=== PATIENT | female | born 1965 | race Two or more races ===

== ENCOUNTER → 2017-05-04 | Outpatient (CLI) | payer MEDICARE, OTHER ==
--- NOTE | 2017-05-04 11:29 | EST ---
EXERCISE STRESS DATE OF SERVICE: 05/04/2017 AGE: 51 SEX: Female HT: 5'4" WT: 107 pounds PROTOCOL: Cardiolite Treadmill STAGE: III DURATION OF EXERCISE: 11 minutes and 21 seconds. HEART RATE REST: 60 BLOOD PRESSURE REST: 117/76 MAXIMUM HEART RATE ACHIEVED: 148 MAXIMUM BLOOD PRESSURE: 173/98 85% MPHR: 143 100% MPHR: 168 METS: 12.1 INDICATIONS: Chest pain. CLINICAL INFORMATION: Baseline EKG revealed a sinus mechanism without significant ST-T changes. There was borderline voltage criteria for LVH. Patient walked on a standard Liam protocol for 11 minute 21 seconds achieved a maximum heart rate of 148 beats per minute, which is more than 85% of predicted maximal. She developed fatigue and shortness of breath, but did not have any angina or arrhythmia. Resting blood pressure was 117/76. Peak blood pressure was 173/98. There was a lot of baseline artifact. However, there is no clear- cut evidence to suggest any stress-induced ischemia. Upsloping ST-segment changes were noted. By EKG, there is a negative stress test with good exercise capacity. The nuclear scan results, which are more pertinent, will be reported by the radiologist. MMODL / IJN: [id number] /
--- NOTE | 2017-05-04 12:53 | NM ---
EXAMINATION TYPE: NM stress cardiolite complete DATE OF EXAM: 05/04/2017 COMPARISON: NONE HISTORY: Chest pain TECHNIQUE: After the intravenous administration of 10.02 mCi Tc 99m Sestamibi - Rest images obtained 50 minutes post injection. The patient exercised using a ELIZABETH protocol and 1 minute prior to peak exercise was injected with 27.1 mCi Tc 99m Sestamibi - Stress images obtained 15 minutes post inject ion. FINDINGS: Targeted heart rate was achieved during performance of the study. Review of stress and rest SPECT carmina ges demonstrates no distinct perfusion abnormality. Gated analysis shows normal wall motion with an estimated left ventricular ejection fraction of 58 %. IMPRESSION: No scintigraphic evidence for reversible ischemia
== END | disposition home or self-care (01) ==
LOC: RADNMMAIN 07:26
PROVIDERS: ATTEND Family Medicine
DX: R07.89 Other chest pain (principal)
CPT/HCPCS: 93017; 78452; A9500

== ENCOUNTER → 2017-05-06 | Outpatient (CLI) | payer MEDICARE ==
--- NOTE | 2017-05-06 19:35 | MR ---
EXAMINATION TYPE: MR cervical spine wo/w con DATE OF EXAM: 05/06/2017 7:02 PM COMPARISON: NONE HISTORY: Neck pain with Limited ROM,Gadavist 5.0 CONTRAST: The patient was injected with 5.0 mL intravenous Gadavist gadolinium contrast. Multiplanar MultiSpin echo imaging of the cervical spine was performed. C2-C3: No evidence for degenerative disc disease. No disc bulge/herniation or protrusion. No Canal stenosis. Foramina are patent bilaterally. C3-C4: No evidence for degenerative disc disease. No disc bulge/herniation or protrusion. No Canal stenosis. Foramina are patent bilaterally. C4-C5: Mild disc desiccation. Mild posterior disc bulge with mild effacement ventral thecal sac. No e vidence for cord contact, herniation or central stenosis. Mild narrowing left neural foramen secondar y to uncovertebral degenerative change. C5-C6: Post operative changes of anterior cervical discectomy and fusion. Alignment is anatomic. No e vidence for recurrent or residual herniation. No central stenosis. No pathologic enhancement. C6-C7:Mild disc desiccation. Mild posterior disc bulge with mild effacement ventral thecal sac. No ev idence for cord contact, herniation or central stenosis. Mild narrowing left neural foramen secondary to uncovertebral degenerative change. C7-T1: No evidence for degenerative disc disease. No disc bulge/herniation or protrusion. No Canal stenosis. Foramina are patent bilaterally. No cervical spine fracture. There is normal alignment. Cervical spinal cord is of normal signal. C raniovertebral junction relationships are within normal limits. No pathologic enhancement. Poorly ch aracterized tubular structure at the base of the tongue CT of the neck is recommended. IMPRESSION: 1. Postoperative changes of ACDF at C5-6 without evidence for recurrent or residual disease. 2. Degenerative disc disease and disc bulging as discussed above. #3 tubular structure at the base of the tongue requires further evaluation with contrast-enhanced CT of the neck.
== END | disposition home or self-care (01) ==
LOC: RADMRIMAIN 17:57
PROVIDERS: ATTEND Family Medicine
DX: M50.221 Other cervical disc displacement at C4-C5 level (principal); M50.30 Other cervical disc degeneration, unspecified cervical region; M43.6 Torticollis; Z98.890 Other specified postprocedural states
CPT/HCPCS: 72156; A9581

== ENCOUNTER → 2017-07-26 | Outpatient (CLI) | payer MEDICARE, OTHER ==
--- NOTE | 2017-07-27 08:32 | CT ---
EXAMINATION TYPE: CT soft tissue neck w con DATE OF EXAM: 07/26/2017 HISTORY: Mass to base of tongue found on MRI. COMPARISON: 05/06/2017 CT DLP: 408 mGycm. Automated Exposure Control for Dose Reduction was Utilized. TECHNIQUE: CT scan of the neck is performed with IV Contrast, patient injected with 100 mL of Isovue M300, axial images are obtained, coronal and sagittal reformatted images are reviewed. FINDINGS: Airway: Deep to the hyoid there is an elongated tubular structure extending over the thyroid cartilag e again measuring approximately 2.2 x 1.1 cm. Attenuation is slightly higher than simple fluid. This is smoothly marginated and does not create destruction of surrounding structures. There is no signifi cant mass effect upon the vallecula. No additional masses are identified. Parotid/submandibular glands: No gross abnormality seen. Carotid/Vascular Structures: There is a normal 3 vessel branch pattern of the aortic arch. The caroti d and vertebral arteries appear patent. Minimal nonhemodynamically significant calcific plaque is see n within the left cavernous portion of the internal carotid artery. Vertebral arteries are codominant . Osseous Structures: Anterior cervical fusion device is incidentally noted in addition to mild multile tiffanie degenerative changes of the cervical spine. Paranasal sinuses and mastoid air cells appear well a erated. Other: No adenopathy is seen within the neck. Very mild centrilobular emphysematous changes are seen at the lung apices. IMPRESSION: Near fluid attenuated elongated lesion posterior to the hyoid midline within the neck. Co mpilation of findings favor a benign slightly complicated thyroglossal duct cyst containing a small a mount of protein or hemorrhage. Superimposed infection is unlikely as there are no surrounding inflam matory changes. Differential does include epidermoid cyst, atypical laryngocele and ranula. If this i s a new finding or interval growth is suspected confirmation with enhanced MRI could be performed to ensure no postcontrast enhancement as precontrast images were not obtained on today's examination.
== END ==
LOC: RADCTMAIN 17:33
PROVIDERS: ATTEND Family Medicine
DX: M89.9 Disorder of bone, unspecified (principal); Q89.2 Congenital malformations of other endocrine glands
CPT/HCPCS: 70491; Q9967

== ENCOUNTER → 2017-08-04 | Outpatient (CLI) | payer MEDICARE, OTHER ==
--- NOTE | 2017-08-05 14:16 | MM ---
Reason for exam: screening (asymptomatic). Last mammogram was performed 2 years and 8 months ago. History: Patient is postmenopausal. Physical Findings: A clinical breast exam by your physician is recommended on an annual basis and results should be correlated with mammographic findings. MG Screening Mammo w CAD Bilateral CC, MLO, and XCCL view(s) were taken. Prior study comparison: December 04, 2014, mammogram, performed at [facility]. November 30, 2012, mammogram, performed at [facility]. August 15, 2010, mammogram, performed at [facility]. April 02, 2009, mammogram, performed at [facility]. The breast tissue is extremely dense which could obscure a lesion on mammography. Focal asymmetry right upper MLO view and left lower MLO view. This finding is changed when compared with previous exams. ASSESSMENT: Incomplete: need additional imaging evaluation, BI-RAD 0 RECOMMENDATION: Special view mammogram of both breasts. If lesion persists on supplemental views, image directed ultrasound is recommended. [facility] will attempt to contact patient to return for supplemental views and ultrasound if indicated.
== END | disposition home or self-care (01) ==
LOC: RADMAMWWP 13:22
PROVIDERS: ATTEND Family Medicine
DX: Z12.31 Encounter for screening mammogram for malignant neoplasm of breast (principal)
CPT/HCPCS: 77067

== ENCOUNTER → 2017-08-31 | Outpatient (CLI) | payer MEDICARE, OTHER ==
--- NOTE | 2017-09-01 07:40 | MM ---
Reason for exam: additional evaluation requested from abnormal screening. Last mammogram was performed 1 month ago. History: Patient is postmenopausal. Physical Findings: Nurse did not find any significant physical abnormalities on exam. MG Work Up Mamm w CAD BILAT Bilateral spot compression MLO and ML view(s) were taken. Spot compression XCCL view(s) were taken of the left breast. Prior study comparison: August 04, 2017, bilateral MG screening mammo w CAD. December 04, 2014, mammogram, performed at [facility]. The breast tissue is heterogeneously dense. This may lower the sensitivity of mammography. No distinct lesion persists on additional views in the right breast. Asymmetry does not go completely away on left breast. These results were verbally communicated with the patient and result sheet given to the patient on 08/31/17. ASSESSMENT: Incomplete: need additional imaging evaluation, BI-RAD 0 RECOMMENDATION: Ultrasound of the left breast.
--- NOTE | 2017-09-01 07:41 | USB ---
Reason for exam: additional evaluation requested from abnormal screening. History: Patient is postmenopausal. US Breast Workup Limited LT Left limited breast ultrasound including focal area of concern, retroareolar and axilla demonstrates no cystic or solid lesion seen. These results were verbally communicated with the patient and result sheet given to the patient on 08/31/17. ASSESSMENT: Negative, BI-RAD 1 RECOMMENDATION: Return to routine screening mammogram schedule for both breasts.
== END | disposition home or self-care (01) ==
LOC: RADMAMWWP 14:57
PROVIDERS: ATTEND Family Medicine
DX: R92.8 Other abnormal and inconclusive findings on diagnostic imaging of breast (principal)
CPT/HCPCS: 77066

== ENCOUNTER → 2017-10-25 | Outpatient (CLI) | payer MEDICARE, OTHER ==
--- NOTE | 2017-10-26 05:36 | MR ---
EXAMINATION TYPE: MR neck wo/w con DATE OF EXAM: 10/25/2017 COMPARISON: 05/06/[address] scan 07/26/2017 HISTORY: Neck mass CONTRAST: Standard multiplanar, multisequence MRI departmental protocol utilizing 10 mL intravenous gadolinium contrast. FINDINGS: Parotid glands and submandibular salivary glands are symmetric. Subglottic trachea appears normal. The epiglottis appears normal. Prevertebral soft tissues are not enlarged. There is an elongated intermediate signal mass at the base of the tongue anterior to the epiglottis. This is bilobed. This measures 17 x 10 mm in diameter and shows no enhancement. On the T2 images this has high signal consistent with fluid. There is no cervical adenopathy. I see no bony destructive pr ocess. IMPRESSION: Nonenhancing elongated mass at the base of the tongue has benign features and could be thyroglossal duct remnant or cyst. This is not changed in size compared to old MR scan of 05/06/2017. Features appe ar benign.
== END | disposition home or self-care (01) ==
LOC: RADMRIMAIN 17:31
PROVIDERS: ATTEND Otolaryngology
DX: R22.1 Localized swelling, mass and lump, neck (principal); Z88.5 Allergy status to narcotic agent; Z88.2 Allergy status to sulfonamides
CPT/HCPCS: 70543; A9581

== ENCOUNTER → 2019-02-14 | Outpatient (CLI) | payer MEDICARE ==
--- NOTE | 2019-02-16 13:25 | MM ---
Reason for exam: screening (asymptomatic). Last mammogram was performed 1 year and 5 months ago. History: Patient is postmenopausal. Took hormonal contraceptives for 20 years. Physical Findings: A clinical breast exam by your physician is recommended on an annual basis and results should be correlated with mammographic findings. MG 3D Screening Mammo W/Cad Bilateral CC and MLO view(s) were taken. Prior study comparison: August 31, 2017, bilateral MG work up mamm w CAD BILAT. August 04, 2017, bilateral MG screening mammo w CAD. The breast tissue is extremely dense which could obscure a lesion on mammography. Benign appearing calcifications in the left breast. No suspicious abnormality. No significant changes when compared with prior studies. ASSESSMENT: Benign, BI-RAD 2 RECOMMENDATION: Routine screening mammogram of both breasts in 1 year.
== END | disposition home or self-care (01) ==
LOC: RADMAMWWP 08:35
PROVIDERS: ATTEND Family Medicine
DX: Z12.31 Encounter for screening mammogram for malignant neoplasm of breast (principal)
CPT/HCPCS: 77063; 77067

== ENCOUNTER → 2019-10-09 | Outpatient (CLI) | payer MEDICARE ==
--- NOTE | 2019-10-09 09:08 | MR ---
MRI CERVICAL SPINE: CLINICAL HISTORY: Spondylosis with radiculopathy per order. Headache with neck pain causing pain or w eakness into left arm and fingers per patient. TECHNIQUE: Multiplanar, multisequence imaging of the cervical spine is performed without IV contrast. COMPARISON: None. FINDINGS: Sagittal images of the cervical spine show the craniocervical junction to appear within nor mal limits. The cervical and upper thoracic spinal cord is normal in course, caliber, and signal. Th ere is slight grade 1 retrolisthesis C4 on C5 and C6 on C7. There is artifact from anterior fusion p late and disc material at C5-C6 level. The vertebral body and intravertebral disk heights are of sati sfactory above and below surgical levels. The bone marrow signal intensity is within normal limits. Axial images show C2-C3 and C3-C4 levels to appear within normal limits. Axial images at the C4-C5 level show focal left paracentral/foraminal disc protrusion effacing amanda lateral thecal sac and causing asymmetric moderate left-sided neural foraminal narrowing. Axial images at the C5-C6 level show artifact from disc material. There is foraminal spurring bilater ally causing moderate left and mild right-sided neural foraminal narrowing. Axial images at the C6-C7 level shows spondylolisthesis with broad-based posterior disc protrusion ef facing anterior thecal sac and causing moderate to severe left-sided neural foraminal narrowing. Ther e is more mild right-sided neural foraminal narrowing noted. Axial images at C7-T1 level appear within normal limits. Incidental 1.0 cm thin-walled cyst or prominence of the exiting nerve sheath at the left T1-T2 level, latter favored. IMPRESSION: Postsurgical change C5-C6 level. Multilevel degenerative changes noted as detailed above. Increased multilevel left-sided neural foraminal narrowing noted due to marginal and foraminal spurr ing.
== END | disposition home or self-care (01) ==
LOC: RADMRIMAIN 08:23
DX: M99.71 Connective tissue and disc stenosis of intervertebral foramina of cervical region (principal); M47.22 Other spondylosis with radiculopathy, cervical region; Z98.890 Other specified postprocedural states
CPT/HCPCS: 72141

== ENCOUNTER → 2019-12-29 | Outpatient (CLI) | payer MEDICARE, OTHER ==
--- NOTE | 2019-12-29 11:28 | XR ---
EXAMINATION TYPE: XR cervical spine limited DATE OF EXAM: 12/29/2019 COMPARISON: NONE HISTORY: Postop TECHNIQUE: 3 views submitted FINDINGS: Postsurgical changes at levels C4-C7. Prevertebral soft tissue structures within normal salter its. Odontoid intact. Multilevel facet arthropathy. At one of the metallic screws appears along the d isc space and inferior endplate of C6 on the lateral view. Correlate clinically. IMPRESSION: 1. Postoperative changes in near-anatomic alignment. 2. Multilevel facet arthropathy.
== END | disposition home or self-care (01) ==
LOC: RADXRMAIN 11:05
DX: M47.812 Spondylosis without myelopathy or radiculopathy, cervical region (principal); M43.22 Fusion of spine, cervical region; Z79.899 Other long term (current) drug therapy
CPT/HCPCS: 72040

== ENCOUNTER → 2020-05-07 | Outpatient (CLI) | payer MEDICARE, OTHER ==
--- NOTE | 2020-05-07 09:38 | XR ---
EXAMINATION TYPE: XR cervical spine limited DATE OF EXAM: 05/07/2020 COMPARISON: 12/29/2019 HISTORY: Postop TECHNIQUE: 3 views obtained FINDINGS: Postsurgical changes at levels C4-C7. Prevertebral soft tissue structures within normal limits. Odont oid intact. Multilevel facet arthropathy. At one of the metallic screws appears along the disc space and inferior endplate of C6 on the lateral view. Correlate clinically. IMPRESSION: 1. Postoperative changes in near-anatomic alignment. 2. Multilevel facet arthropathy.
== END | disposition home or self-care (01) ==
LOC: RADXRMAIN 09:17
PROVIDERS: ATTEND Physician Assistant Surgical
DX: Z48.89 Encounter for other specified surgical aftercare (principal); M47.812 Spondylosis without myelopathy or radiculopathy, cervical region
CPT/HCPCS: 72040

== ENCOUNTER → 2020-08-06 | Outpatient (CLI) | payer MEDICARE, OTHER ==
--- NOTE | 2020-08-06 12:56 | XR ---
Cervical spine Limited HISTORY: G 95.9 3 views of the cervical spine correlated prior exam 05/07/2020 Exam is stable. Patient is status post anterior cervical fusion and discectomy at C4-C7. Alignment is near-anatomic and stable. C7-T1 not included on the exam. Cervical vertebral bodies show stable heig ht and mineralization. Facet arthropathy changes are present as on prior exam. impression: Surgical follow-up. Postop changes
== END | disposition home or self-care (01) ==
LOC: RADXRMAIN 11:15
PROVIDERS: ATTEND Physician Assistant Surgical
DX: G95.9 Disease of spinal cord, unspecified (principal)
CPT/HCPCS: 72040

== ENCOUNTER → 2020-10-03 | Outpatient (CLI) | payer MEDICARE, OTHER ==
--- NOTE | 2020-10-03 14:14 | CT ---
EXAMINATION TYPE: CT cervical spine wo con DATE OF EXAM: 10/03/2020 COMPARISON: None HISTORY: neck pain with radiation to arms, arms numbness and weakness, history of prior sx CT DLP: 276.[address] of the cervical spine was performed with bone and soft tissue window settings submitted . Coronal and sagittal reconstruction is obtained. Postoperative changes of the anterior cervical discectomy and fusion noted extending from C4 through C7. Anterior fixation plate and intervertebral body spacers are in place. Alignment is near-anatomic. The C2-3 and C3-4 as well as the C7-T1 intervertebral spaces are within normal limits. No evidence f or disc herniation or central stenosis. No recurrent disease is evident. IMPRESSION: Appropriate postoperative appearance of the cervical spine.
== END | disposition home or self-care (01) ==
LOC: RADCTMAIN 13:30
DX: G95.9 Disease of spinal cord, unspecified (principal)
CPT/HCPCS: 72125

== ENCOUNTER → 2020-12-02 | Outpatient (CLI) | payer MEDICARE, OTHER ==
[2020-12-02 11:08] VITALS: BP 158/96; PULSE 60; RESP 18
--- NOTE | 2020-12-02 11:12 | P.PAINCN ---
History of Present Illness - Reason for Consult Consult date: 12/02/20 - History of Present Illness This is 55 years old female with a chronic history of severe neck pain,with radiations to the shoulder area and in the upper extremity, patient reported that she had cervical fusion surgery with revision done more than a year ago, and she reports that she continued to have severe pain, the pain is constant interfere with her quality of life and increased with any neck movement, patient tried physical therapy without any significant improvement she tried massage therapy, tried. He without any relief, he feels some weakness in her upper extremity, also patient complaining of low back pain patient had lumbar fusion surgery, that most of her pain is in the cervical area, and was referred by Dr. Sanabria for evaluation and C7-T1 facet ejections Past Medical History Past Medical History: Memory Impairment Additional Past Medical History / Comment(s): Hx head injury 9 yrs ago. Vertigo. History of Any Multi-Drug Resistant Organisms: None Reported Past Surgical History: Back Surgery Additional Past Surgical History / Comment(s): Back surgery X2, neck surgery. Past Anesthesia/Blood Transfusion Reactions: No Reported Reaction Additional Past Anesthesia/Blood Transfusion Reaction / Comm: Slow to wake up with last surgery. Vertigo. Past Psychological History: Anxiety, Depression Smoking Status: Current every day smoker Past Alcohol Use History: Rare Additional Past Alcohol Use History / Comment(s): Smokes 1/2 ppd on and off for 30 yrs. Past Drug Use History: Marijuana Additional Drug Use History / Comment(s): Marijuana edibles daily PRN. - Past Family History Brother(s) Family Medical History: Cancer Additional Family Medical History / Comment(s): Mouth cancer. Lung cancer X2 brothers. Daughter(s) Family Medical History: Cancer Additional Family Medical History / Comment(s): Cervical cancer. Medications and Allergies Home Medications Medication Instructions Recorded Confirmed Type Cholecalciferol [Vitamin D3 (25 25 mcg PO DAILY 11/28/20 12/02/20 History Mcg = 1000 Iu)] PARoxetine HCL [Paxil] 30 mg PO DAILY 11/28/20 12/02/20 History Allergies Allergy/AdvReac Type Severity Reaction Status Date / Time codeine Allergy Nausea & Verified 12/02/20 10:26 Vomiting Physical Exam Physical Examinations : -Constitutiona : Cooperative , not in acute distress . -HEENT : nech : supple , no Lymphadenopathy , normal thyroid size . : eyes : no ptosis , no icterus, no photophobia . - neurologic : Cranial nerve II to XII intact , no focal neurological deffecit . -psychatric : alert , oriented X 3 , appropriate affect , intact judgment and insight . -Lymphatic : no Lymphadenopathy . - musculoskeltal : Cervical Spine motor stregnth in the deltoid and biceps, normal right side , normal Left side motor stregnth biceps and the wrist extensors normal right side ,normal left side . motor stregnth in the triceps muscle . normal Right side , normal Left side deep tendon reflexes normal at the biceps , normal at Brachioradialis , normal at triceps. cervical facet loading test: Positive Bilaterally Spurling test= positive Right , positive left. Neck distraction test= positive Right , positive left. Wendi sign= positive right, positive left . limited neck movement. Limited neck rotation Lumber spine moter stegnth lower extremities ,thigh and legs 5/5 Right side , 5/5 Left side Results Comments: MRI of the cervical spine= post surgical changes at C5 6, cervical foraminal stenosis. Assessment and Plan Plan: Assessment and plan=1-cervical spondylosis with cervical facet arthropathy. 2-cervical foraminal stenosis. 3-previous fusion at C5-6 Shunt could benefit from diagnostic medial branch block cervical area C6, C7, T1 bilaterally x2 possible RFA Time with Patient: Greater than 30 PQRS Measure Charge Sheet Measure #130: Documentation of Current Meds in Medical Chart: Patient's medications documented in chart Measure #226: Tobacco Use: Screen & Cessation Intervention: Pt screened for tobacco use AND intervention given Measure #111: Pneumonia Vaccination: Pneumococcal vaccine NOT administered or previously given Measure #47: Advance Care Plan: Advance care planning discussed & documented, pt chose/unable to give Measure #412: Opioid Treatment Agreement: No documentation of signed opioid treatment agreement Measure #408: Opioid Therapy Follow-up Evaluation: Patient had NO f/u eval minimum every 3 months during opioid therapy Measure #317: Preventitive Care & Scrn High Bld Press & F/U: Pre-hypertensive or hypertensive BP documented, pt will f/u with PCP Measure #128: Body Mass Index (BMI) Screening & Follow-up: BMI documented within normal parameters Measure #131: Pain Assessment & Follow-up: Pain positive & plan documented, Follow-up scheduled Measure #431: Unhealthy Alcohol Use Preventative Care & Scrn: Patient not identified as an unhealthy alcohol user PQRS Narrative: Pain Intensity [Neck] 10 Scale Used Numeric (1 - 10) Hx Alcohol Use (MH) Yes Home Medications: Ambulatory Orders Cholecalciferol [Vitamin D3 (25 Mcg = 1000 Iu)] 25 mcg PO DAILY 11/28/20 PARoxetine HCL [Paxil] 30 mg PO DAILY 11/28/20
== END ==
LOC: PNWHC3 10:19
PROVIDERS: ATTEND Specialist
DX: M47.812 Spondylosis without myelopathy or radiculopathy, cervical region (principal); M48.02 Spinal stenosis, cervical region; F41.9 Anxiety disorder, unspecified; F32.9 Major depressive disorder, single episode, unspecified; F17.210 Nicotine dependence, cigarettes, uncomplicated; Z79.899 Other long term (current) drug therapy; Z98.1 Arthrodesis status; Z88.5 Allergy status to narcotic agent
CPT/HCPCS: G0463 ×2; 99202; 99211

== ENCOUNTER 2021-01-03 10:34 | Day surgery (SDC) | payer MEDICARE, OTHER ==
[2021-01-01 15:38] VITALS: BMI 20.5
[2021-01-03 11:23] VITALS: TEMP 97.8
[2021-01-03] MEDS ORDERED: LACTATED RINGERS 1,000 ML IV ONE (11:23)
[2021-01-03] MEDS ORDERED: LACTATED RINGERS 1,000 ML IV SCH (11:33)
[2021-01-03] MEDS ORDERED: TRIAMCINOLONE ACETONIDE 40 MG/ML 1 ML VIAL ONE (11:34)
[2021-01-03] MEDS ORDERED: ROPIVACAINE 5MG/ML 20ML VIAL ONE (11:34)
[2021-01-03] MEDS ORDERED: fentaNYL (PF) 50 MCG/ML 2 ML AMP ONE (11:36)
[2021-01-03] MEDS ORDERED: MIDAZOLAM 2 MG/2 ML VIAL ONE (11:36)
[2021-01-03] MEDS ORDERED: ONDANSETRON 4 MG/2 ML VIAL ONE (11:36)
[2021-01-03] MEDS ORDERED: IV FLUID CONTINUATION 1,000 ML IV ONE (12:18)
--- NOTE | 2021-01-03 12:18 | P.PCN ---
Date of Procedure: 01/03/21 Procedure(s) Performed: PREOPERATIVE DIAGNOSIS: Cervical Spondylosis with Facet Arthropathy.without myelopathy POSTOPERATIVE DIAGNOSIS: Cervical Spondylosis Facet Arthropathy. Without myelopathy PROCEDURES: Diagnostic Bilateral C6 , C7 ,T1 medial branch blocks, with fluoroscopic guidance (fluoroscopy images available in radiology department ) ( to target the facet joint at Bilateral C6-C7 ,C7 T1 ) ANESTHESIA: Monitored anesthesia care per anesthesia department. EBL: Minimal PROCEDURE INDICATION: The patient with neck pain secondary to cervical arthropathy unresponsive to more conservative treatments. PROCEDURE DESCRIPTION / TECHNIQUE: The patient was seen and identified in the preoperative area. Risks, benefits, complications, and alternatives were discussed with the patient, the patient agreed to proceed with the procedure and signed the consent. IV was started. Vital signs remained stable throughout the procedure. Patient was taken to the OR and time out was completed. The patient was placed in the Lateral position on the procedure table. The cervical area was prepped and draped in the usual sterile fashion. Critical pause was taken. Vital signs were closely monitored during the procedure. Conscious sedation was used during the procedure to decrease patients anxiety. Using cross-table lateral fluoroscopy, the centroid of the trapezoid of right C6, C7 , T1 was identified, marked, and localized with 1% lidocaine 1 ml at each level for skin and Sub Q infiltrations . Subsequently, a 25 G 3 spinal needle was advanced guided by fluoroscopy to the centroid of the trapezoid of Right C6 , C7 ,T1 . Skidmore tip position was confirmed at the centroid of the trapezoids of Right C6, C7 , T1 with anteroposterior fluoroscopy. Subsequently, 1.5 ml of preservative-free Ropivacaine 0.5% mixed with Kenalog 20 mg and half ml of the mixture was injected after negative aspiration for blood and CSF. Skidmore was then removed intact the same procedure was repeated at the left C6 ,C7 ,T1 levels. COMPLICATIONS: No acute complications. COMMENTS: I tried to do the procedure in prone position ,but I was not able to visualize the C6 and C7, T1, then I a put patient on supine position I have the same problem, I could not visualize C6 or C7 or T1,for this reason I did procedure in lateral position for the right side by placing patient on left la teral decubitus ,and I did the left side by placing patient on the right lateral decubitus DISPOSITION / PLANS: The patient was placed in a supine position and transferred to the recovery area in a stable condition for observation and was discharged from the recovery room after meeting discharge criteria. Home discharge instructions given to the patient by the staff. The patient was reexamined prior to discharge. The patient will schedule a follow up in the clinic in 2-4 weeks.
[2021-01-03] MEDS ORDERED: DEXAMETHASONE SOD PHOSPHATE 4 MG/ML 1 ML VIAL IVP ONE (12:37)
[2021-01-03 12:50] VITALS: BP 118/70; PULSE 80; RESP 16
--- NOTE | 2021-01-03 14:00 | FL ---
Fluoroscopy HISTORY: Pain 19 seconds fluoroscopy time supplied to the referring clinician. 2 intraoperative C-arm images docum ent the procedure. See dictated report from anesthesia.
== END 2021-01-03 14:36 | disposition home or self-care (01) ==
LOC: ORPAIN 10:34
PROVIDERS: ATTEND Specialist
DX: M47.812 Spondylosis without myelopathy or radiculopathy, cervical region (principal); Z88.5 Allergy status to narcotic agent; Z79.899 Other long term (current) drug therapy
CPT/HCPCS: 64490; 64491; J2250; J1100; J3301; J2405; J3010; J2795; J1790

== ENCOUNTER 2021-01-07 15:45 | Emergency (ER) | payer MEDICARE, OTHER ==
[2021-01-07] MEDS ORDERED: SODIUM CHLORIDE 0.9% 1,000 ML IV ONE (18:15)
[2021-01-07] MEDS ORDERED: KETOROLAC 30 MG/ML 1 ML VIAL IVP STA (18:15)
[2021-01-07] MEDS ORDERED: PROCHLORPERAZINE INJ 10 MG/2 ML VIAL IVP STA (18:15)
[2021-01-07] MEDS ORDERED: diphenhydrAMINE 50 MG/ML 1 ML VIAL IVP STA (18:15)
[2021-01-07 19:04] LABS: Basophils % (A) 1 %; Eosinophils # (A) 0.1 k/uL (0-0.7); Eosinophils % (A) 1 %; HCT 49.1 % (34.0-46.0); HGB 16.6 gm/dL (11.4-16.0); Lymphocytes # (A) 2.1 k/uL (1.0-4.8); Lymphocytes % (A) 26 %; MCH 32.6 pg (25.0-35.0); MCHC 33.8 g/dL (31.0-37.0); MCV 96.6 fL (80.0-100.0); Mean Platelet Volume 7.4; Monocytes # (A) 0.5 k/uL (0-1.0); Monocytes % (A) 6 %; Neutrophils # (A) 5.2 k/uL (1.3-7.7); Neutrophils % (A) 65 %; Platelet Count 236 k/uL (150-450); RBC 5.09 m/uL (3.80-5.40); RDW 12.3 % (11.5-15.5); WBC 8.1 k/uL (3.8-10.6)
[2021-01-07 19:06] LABS: Appearance,Urine Clear (Clear); Bilirubin,Urine Negative (Negative); Blood,Urine Moderate (Negative); Color,Urine Yellow; Glucose,Urine (UA) Negative (Negative); Ketones,Urine 3+ (Negative); Leukocyte Esterase,Urine Large (Negative); Mucus,Urine Many /hpf; Nitrite,Urine Negative (Negative); PH, Urine 5.5 (5.0-8.0); Protein,Urine Trace (Negative); RBC,Urine 4 /hpf (0-5); Specific Gravity,Urine 1.025 (1.001-1.035); Squamous Epithelial Cell,Urine 1 /hpf (0-4); Urobilinogen,Urine <2.0 mg/dL (<2.0); WBC,Urine 3 /hpf (0-5)
[2021-01-07 19:16] LABS: ALT 15 U/L (4-34); AST 19 U/L (14-36); African American GFR (CKD) >90 (>60 ml/min/1.73 sqM); Albumin 5.2 g/dL (3.5-5.0); Alkaline Phosphatase 64 U/L (38-126); Anion Gap 13 mmol/L; Blood Urea Nitrogen 17 mg/dL (7-17); Calcium 10.3 mg/dL (8.4-10.2); Carbon Dioxide 23 mmol/L (22-30); Chloride 102 mmol/L (98-107); Glucose 107 mg/dL (74-99); Non-African American GFR(CKD) >90 (>60 ml/min/1.73 sqM); Sodium 138 mmol/L (137-145); Total Protein 8.6 g/dL (6.3-8.2)
[2021-01-07 19:30] VITALS: RESP 20
--- NOTE | 2021-01-07 19:38 | CT ---
EXAMINATION TYPE: CT cervical spine w con DATE OF EXAM: 01/07/2021 COMPARISON: 10/03/2020 HISTORY: Pain management injections 4 days ago. Increased neck pain. CT DLP: mGycm Automated exposure control for dose reduction was used. CONTRAST: Performed with IV Contrast, patient injected with mL of Isovue 300. Images obtained from the skull base to T4 vertebra without contrast. There is anterior previous fusion surgery from C4 to C7. Vertebra have normal alignment. Posterior el ements are intact there is no compression fracture. Prevertebral soft tissues are intact. There is no evidence of bony destructive process. There is no cervical paraspinal mass. IMPRESSION: Multilevel fusion surgery. No fracture. No complicating process seen. No change compared to old exam.
--- NOTE | 2021-01-07 19:47 | CT ---
EXAMINATION TYPE: CT soft tissue neck w con DATE OF EXAM: 01/07/2021 COMPARISON: 07/26/2017 HISTORY: Pain management injections 4 days ago. Increased neck pain. CT DLP: 187 mGycm Automated exposure control for dose reduction was used. CONTRAST: Performed with IV Contrast, patient injected with 100 mL of Isovue 300. Images obtained from the aortic arch to the top of the orbits with IV contrast. There is normal branching pattern of the great vessels on the aortic arch. Thyroid gland is symmetric . There is contrast opacification of the carotid arteries and jugular veins. There is contrast opacif ication of the vertebral arteries. Epiglottis is normal. Tonsils and adenoids appear normal. Visualized trachea appears normal. There is no evidence of pharyngeal mass. The submandibular salivary glands are symmetric. Parotid glands are symmetric. There is normal aerati on of the visualized paranasal sinuses. The tongue appears normal. Cervical vertebra have normal alignment. Posterior elements are intact. Th ere is anterior fusion surgery from C4 to C7. I see no focal bone destruction. There is no cervical p araspinal mass. IMPRESSION: Negative CT scan of the cervical soft tissues.
--- NOTE | 2021-01-07 20:24 | ED ---
Nausea/Vomiting/Diarrhea HPI - General Chief complaint: Nausea/Vomiting/Diarrhea Stated complaint: Neck pain Time Seen by Provider: 01/07/21 18:03 Source: patient Mode of arrival: ambulatory Limitations: no limitations - History of Present Illness Initial comments: 55 year-old female patient presents to the ED for reports of left sided neck pain, left side headache, and vomiting. States symptoms started after she received injections for pain in the left side of her neck on Wednesday. States that she has been vomiting since the procedure and has since developed worsening pain to the neck and to her head. She denies any fever or chills. States the pain in her neck is radiating into her left shoulder and down into her chest. Denies any abdominal pain or diarrhea. Denies any numbness or tingling to the extremities. Patient denies any recent rash, cough, shortness of breath, constipation, back pain, numbness, tingling, dizziness, weakness, hematuria, dysuria, urinary urgency, urinary frequency, or any other complaints. - Related Data Home Medications Medication Instructions Recorded Confirmed Cholecalciferol [Vitamin D3 (25 25 mcg PO DAILY 11/28/20 01/07/21 Mcg = 1000 Iu)] PARoxetine HCL [Paxil] 40 mg PO DAILY 11/28/20 01/07/21 Previous Rx's Medication Instructions Recorded Ondansetron [Zofran ODT] 4 mg PO Q8HR PRN #10 tab 01/07/21 Allergies Allergy/AdvReac Type Severity Reaction Status Date / Time codeine Allergy Nausea & Verified 01/01/21 15:29 Vomiting Review of Systems ROS Statement: Those systems with pertinent positive or pertinent negative responses have been documented in the HPI. ROS Other: All systems not noted in ROS Statement are negative. Past Medical History Past Medical History: Memory Impairment Additional Past Medical History / Comment(s): Hx head injury 9 yrs ago. Vertigo. History of Any Multi-Drug Resistant Organisms: None Reported Past Surgical History: Back Surgery Additional Past Surgical History / Comment(s): Back surgery X2, neck surgery. Past Anesthesia/Blood Transfusion Reactions: No Reported Reaction Additional Past Anesthesia/Blood Transfusion Reaction / Comment(s): Slow to wake up with last surgery. Vertigo. Past Psychological History: Anxiety, Depression Smoking Status: Current every day smoker - Past Family History Brother(s) Family Medical History: Cancer Additional Family Medical History / Comment(s): Mouth cancer. Lung cancer X2 brothers. Daughter(s) Family Medical History: Cancer Additional Family Medical History / Comment(s): Cervical cancer. General Exam Limitations: no limitations General appearance: alert, in no apparent distress, other (This is a well- developed, well-nourished adult female patient in no acute distress.) Eye exam: Present: normal appearance, PERRL, EOMI. Absent: scleral icterus, conjunctival injection, nystagmus, periorbital swelling ENT exam: Present: normal exam, normal oropharynx, mucous membranes moist Neck exam: Present: full ROM, other (There is ecchymosis noted to the left lateral neck). Absent: normal inspection, tenderness, meningismus, lymphadenopathy Respiratory exam: Present: normal lung sounds bilaterally. Absent: respiratory distress, wheezes, rales, rhonchi, stridor Cardiovascular Exam: Present: regular rate, normal rhythm, normal heart sounds. Absent: systolic murmur, diastolic murmur, rubs, gallop, clicks GI/Abdominal exam: Present: soft, normal bowel sounds. Absent: distended, tenderness, guarding, rebound, rigid Neurological exam: Present: alert, oriented X3, CN II-XII intact Psychiatric exam: Present: normal affect, normal mood Skin exam: Present: warm, dry, intact, normal color. Absent: rash Course Vital Signs 01/07/21 01/07/21 01/07/21 16:36 18:55 21:11 Temperature 98.3 F 98.1 F Pulse Rate 69 58 L 60 Respiratory 19 20 20 Rate Blood Pressure 139/68 152/83 130/82 O2 Sat by Pulse 98 99 98 Oximetry Medical Decision Making - Medical Decision Making 55 old female patient presents to the emergency department for evaluation of left-sided neck pain, left-sided headache, and nausea vomiting. Physical examination did reveal soft nontender abdomen. She is neurologically intact no focal deficits. Neurovascular status intact to the upper extremities. CT soft tissue neck and C-spine with contrast was obtained and was negative for any acute abnormalities. Labs reviewed and are unremarkable. She did have ketones in her urine consistent with dehydration. I did discuss findings results with her. Upon reevaluation she is feeling much better. She does feel comfortable being discharged home at this time. She be discharged with prescription for nausea medication. She is instructed to follow-up with Dr. Holder for further evaluation as soon as possible. Return parameters were discussed in detail. She verbalizes understanding and agrees with this plan. Case discussed with my attending Dr. Kaur. - Lab Data Result diagrams: 01/07/21 18:44 01/07/21 18:44 Lab Results 01/07/21 01/07/21 01/07/21 Range/Units 18:44 18:44 18:44 WBC 8.1 (3.8-10.6) k/uL RBC 5.09 (3.80-5.40) m/uL Hgb 16.6 H (11.4-16.0) gm/dL Hct 49.1 H (34.0-46.0) % MCV 96.6 (80.0-100.0) fL MCH 32.6 (25.0-35.0) pg MCHC 33.8 (31.0-37.0) g/dL RDW 12.3 (11.5-15.5) % Plt Count 236 (150-450) k/uL MPV 7.4 Neutrophils % 65 % Lymphocytes % 26 % Monocytes % 6 % Eosinophils % 1 % Basophils % 1 % Neutrophils # 5.2 (1.3-7.7) k/uL Lymphocytes # 2.1 (1.0-4.8) k/uL Monocytes # 0.5 (0-1.0) k/uL Eosinophils # 0.1 (0-0.7) k/uL Basophils # 0.0 (0-0.2) k/uL Sodium 138 (137-145) mmol/L Potassium 4.0 (3.5-5.1) mmol/L Chloride 102 (98-107) mmol/L Carbon Dioxide 23 (22-30) mmol/L Anion Gap 13 mmol/L BUN 17 (7-17) mg/dL Creatinine 0.52 (0.52-1.04) mg/dL Est GFR (CKD-EPI)AfAm >90 (>60 ml/min/1.73 sqM) Est GFR (CKD-EPI)NonAf >90 (>60 ml/min/1.73 sqM) Glucose 107 H (74-99) mg/dL Plasma Lactic Acid Bret 1.2 (0.7-2.0) mmol/L Calcium 10.3 H (8.4-10.2) mg/dL Total Bilirubin 1.0 (0.2-1.3) mg/dL AST 19 (14-36) U/L ALT 15 (4-34) U/L Alkaline Phosphatase 64 (38-126) U/L Troponin I (0.000-0.034) ng/mL Total Protein 8.6 H (6.3-8.2) g/dL Albumin 5.2 H (3.5-5.0) g/dL Urine Color Urine Appearance (Clear) Urine pH (5.0-8.0) Ur Specific [place] (1.001-1.035) Urine Protein (Negative) Urine Glucose (UA) (Negative) Urine Ketones (Negative) Urine Blood (Negative) Urine Nitrite (Negative) Urine Bilirubin (Negative) Urine Urobilinogen (<2.0) mg/dL Ur Leukocyte Esterase (Negative) Urine RBC (0-5) /hpf Urine WBC (0-5) /hpf Ur Squamous Epith Cells (0-4) /hpf Urine Mucus (None) /hpf Coronavirus (PCR) (Not Detectd) 01/07/21 01/07/21 01/07/21 Range/Units 18:44 18:45 19:30 WBC (3.8-10.6) k/uL RBC (3.80-5.40) m/uL Hgb (11.4-16.0) gm/dL Hct (34.0-46.0) % MCV (80.0-100.0) fL MCH (25.0-35.0) pg MCHC (31.0-37.0) g/dL RDW (11.5-15.5) % Plt Count (150-450) k/uL MPV Neutrophils % % Lymphocytes % % Monocytes % % Eosinophils % % Basophils % % Neutrophils # (1.3-7.7) k/uL Lymphocytes # (1.0-4.8) k/uL Monocytes # (0-1.0) k/uL Eosinophils # (0-0.7) k/uL Basophils # (0-0.2) k/uL Sodium (137-145) mmol/L Potassium (3.5-5.1) mmol/L Chloride (98-107) mmol/L Carbon Dioxide (22-30) mmol/L Anion Gap mmol/L BUN (7-17) mg/dL Creatinine (0.52-1.04) mg/dL Est GFR (CKD-EPI)AfAm (>60 ml/min/1.73 sqM) Est GFR (CKD-EPI)NonAf (>60 ml/min/1.73 sqM) Glucose (74-99) mg/dL Plasma Lactic Acid Bret (0.7-2.0) mmol/L Calcium (8.4-10.2) mg/dL Total Bilirubin (0.2-1.3) mg/dL AST (14-36) U/L ALT (4-34) U/L Alkaline Phosphatase (38-126) U/L Troponin I <0.012 (0.000-0.034) ng/mL Total Protein (6.3-8.2) g/dL Albumin (3.5-5.0) g/dL Urine Color Yellow Urine Appearance Clear (Clear) Urine pH 5.5 (5.0-8.0) Ur Specific [place] 1.025 (1.001-1.035) Urine Protein Trace H (Negative) Urine Glucose (UA) Negative (Negative) Urine Ketones 3+ H (Negative) Urine Blood Moderate H (Negative) Urine Nitrite Negative (Negative) Urine Bilirubin Negative (Negative) Urine Urobilinogen <2.0 (<2.0) mg/dL Ur Leukocyte Esterase Large H (Negative) Urine RBC 4 (0-5) /hpf Urine WBC 3 (0-5) /hpf Ur Squamous Epith Cells 1 (0-4) /hpf Urine Mucus Many H (None) /hpf Coronavirus (PCR) Not Detected (Not Detectd) - EKG Data -: EKG Interpreted by Wy EKG Comments: EKG obtained at 1835 shows sinus rhythm with a short CO interval. Ventricular rate is 60, CO interval 110, QRS duration 74, QT 424, QTC 424. No evidence of ST elevation or depression. - Radiology Data Radiology results: report reviewed, image reviewed CT soft tissue neck with contrast was obtained. Report is reviewed in its entirety. Impression by Dr. Oropeza shows negative computed tomography scan of the cervical soft tissues. CT cervical spine with contrast was obtained. Report was reviewed in its entirety. Impression by Dr. Oropeza shows multilevel fusion surgery. No fracture. No compared getting process seen. No change compared to old exam. Disposition Clinical Impression: Neck pain, Vomiting Disposition: HOME SELF-CARE Condition: Good Instructions (If sedation given, give patient instructions): Acute Nausea and Vomiting (ED), Neck Pain (ED) Additional Instructions: Take nausea medication as needed. 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 Return for any new, worsening, or concerning symptoms. Prescriptions: Ondansetron [Zofran ODT] 4 mg PO Q8HR PRN #10 tab PRN Reason: Nausea Is patient prescribed a controlled substance at d/c from ED?: No Referrals: Akil Curry [Primary Care Provider] - 1-2 days Russell Holdre MD [STAFF PHYSICIAN] - 1-2 days Time of Disposition: 20:31
[2021-01-07 21:12] VITALS: BP 130/82; PULSE 60; TEMP 98.1
== END 2021-01-07 21:12 | disposition home or self-care (01) ==
LOC: EC 15:45
DX: M54.2 Cervicalgia (principal); R11.10 Vomiting, unspecified; F41.9 Anxiety disorder, unspecified; F32.A Depression, unspecified; F17.200 Nicotine dependence, unspecified, uncomplicated
CPT/HCPCS: 96375 ×3; 96361 ×3; 96374 ×2; 99284 ×2; 36415; 93005; 80053; 83605; 84484; 85025; 81001; 87635; 72126; 70491; J1200; J0780; J1885; Q9967

== ENCOUNTER → 2023-06-03 | Outpatient (CLI) | payer MEDICARE, OTHER ==
[2023-06-03 10:40] VITALS: BP 128/72; PULSE 75; RESP 15; TEMP 98.5
--- NOTE | 2023-06-03 13:32 | P.PAINPG ---
PQRS Measure Charge Sheet Comment: A 57 yr old female with a history of severe and chronic LBP x 3 mo secondary to L4-L5 Discectomy/ Laminectomy w Revision (2012, 2019) presents today for LBP. Pain level is provoked at 9 /10 in intensity, constant, predominantly axial, localized in the lumbar spine, dull in character w occasional shooting towards the upper back. Pain is provoked by . Pain is alleviated with use of the [employer] pool weekly x 3 yrs, heat, ice, medications (Robaxin), THC products, repositioning and rest. Oswestry axial pain score at 35. Interventional pain procedures completed include BL MBB C6-7, C7-T1 x1 Patient is currently on Robaxin, Cannabis Patient denies any side effects of the medication(s), denies excessive drow siness or sleepiness, denies suicidal ideation and reports that the current pain medication is helping to control the pain and improve activities of daily living. Patient denies any motor or sensory deficits. Patient denies any fever or night sweats, denies any change in the bowel movements or urination. Physical Examination: -Constitutional: Cooperative. Not in acute distress . - Neurologic: Cranial nerve II to XII intact. No focal neurological deficits. - Psychatric: Alert & oriented x 3. Matching mood & appropriate affect. Judgment and insight intact. - Musculoskeletal: Cervical spine: Muscle bulk/ tone/ strength in the bilateral upper extremities normal Vertebral body tenderness to palpation over Spurling test positive Distraction test positive Facet loading test positive TTP Thoracic spine Muscle bulk / tone/ strength in the bilateral paraspinal muscles normal Vertebral body tender to palpation over Facet loading test positive TTP Lumbar spine: Motor bulk/ tone/ strength lower extremities , thigh and legs : 5/5 Deep tendon reflexes : Normal Knee Jerk. Normal Ankle Jerk . Vertebral body tenderness to palpation over L4 Ohara Test positive Lumbar Facet Loading Test positive Straight Leg Raise: positive at 30 degrees right side/ left side Gaenslen's Test positive Sacral spine : Severe tenderness over the Sacroiliac joint: right side / left side Range of motion: Flexion of the lumbar spine <60 degrees Range of motion: Extension of the lumbar spine <20 degrees Gaenslen's Test positive right side / left side Chan test: positive right side / left side Thigh Thrust Test positive right side / left side Sacral Thrust Test positive right side / left side Imaging: MRI non contrast of the lumbar spine from 01/29/23 reviewed Assessment and plan: Chronic LBP secondary to L4-L5 discectomy/ Laminectomy w Revision, C4-C7 ACDF Recommendation of AUGUSTINE TFESI L4-L5 #1. May need a series of injections for optimal pain relief. Risks, benefits of procedure discussed and pt verbalized understanding. Admits to anticoagulant use or medical history of diabetes. Protocol for discontinuation/ continuation of medications mary procedure discussed. All questions answered. I have spent less than 30 minutes on patient care today. Dr Espinoza was available by phone for the evaluation of this patient. The time was used to review the medical records including relevant urine studies and Prescription history (MAPs), review of the available imaging, evaluation and examination of the patient, coordination of care with the medical staff and if applicable referring physicians, as well as creation of the medical record PQRS Narrative: Hx Alcohol Use (MH) Yes Home Medications: Ambulatory Orders Cholecalciferol [Vitamin D3 (25 Mcg = 1000 Iu)] 25 mcg PO DAILY 11/28/20 PARoxetine HCL [Paxil] 40 mg PO DAILY 11/28/20 Ondansetron [Zofran ODT] 4 mg PO Q8HR PRN #10 tab 01/07/21 Controlled Substance Measures - Controlled Substance Measures Is patient prescribed a controlled substance at discharge?: No
== END ==
LOC: PNWHC3 09:16
PROVIDERS: ATTEND Specialist
DX: M54.50 Low back pain, unspecified (principal); G89.29 Other chronic pain; M43.22 Fusion of spine, cervical region; Z98.890 Other specified postprocedural states; Z88.5 Allergy status to narcotic agent
CPT/HCPCS: 99211

== ENCOUNTER 2023-06-15 08:20 | Day surgery (SDC) | payer MEDICARE, OTHER ==
[~2023-06-15 08:20] MED LIST: LACTATED RINGERS 1,000 ML IV SCH
[2023-06-15 09:34] VITALS: TEMP 97.1
[2023-06-15] MEDS ORDERED: methylPREDNISolone ACETATE 80 MG/ML 1 ML VIAL ONE (09:34)
[2023-06-15] MEDS ORDERED: IOPAMIDOL M200 10 ML VIAL ONE (09:34)
--- NOTE | 2023-06-15 09:43 | P.PCN ---
Date of Procedure: 06/15/23 Procedure(s) Performed: PREOPERATIVE DIAGNOSIS: 1-Lumbar radiculopathy . 2-lumbar degenerative disc disease. POSTOPERATIVE DIAGNOSIS: 1-lumbar radiculopathy. 2-lumbar degenerative disc disease. PROCEDURE 1. Transforaminal epidural steroid injection under fluoroscopic guidance at bilateral L4-5 level. (Fluoroscopy images stored on file in the radiology Department ) 2. Lumbar epidurogram . ANESTHESIA: Local with 1% lidocaine 3 ml. EBL: Minimal PROCEDURE INDICATION: The patient with low back pain and radiculopathy symptoms unresponsive to conservative treatment. PROCEDURE DESCRIPTION / TECHNIQUE: The patient was seen and identified in the preoperative area. Risks, benefits, complications, and alternatives were discussed with the patient. The patient agreed to proceed with the procedure and signed the consent, and vital signs were stable. Patient was taken to the OR and time out was completed. The patient was placed in the prone position on procedure table and a pillow was placed under the abdomen to reduce lumbar lordosis. The lumbosacral area was prepped and draped in the usual sterile fashion. Critical pause was taken. Vital signs were closely monitored during the procedure. Using oblique fluoroscopy, the chin of the `Yasmanyy dog at right L4-5 level was identified, and the skin and deeper tissues just below was localized with 1% lidocaine. Subsequently, a 22-gauge 3.5-inch spinal needle was advanced under a tunneled view fluoroscopic guidance just underneath the chin of the `Yasmanyy dog at the right L4-5 Under lateral fluoroscopy, the needle was then advanced to the posterior border of the interforaminal space. After negative aspiration of CSF and blood and with no paresthesias, 1 mL Isovue 200 contrast dye was injected excellent epidurogram and outlining of the nerve root Subsequently, 3 mL of block solution containing 40 mg Depo-Medrol and 2 mL of 0.9% normal saline PF was injected. Needle was removed and the same procedure was repeated at the left L4-5 level . At the end of the procedure, skin was cleansed, and bandages were applied. COMPLICATIONS:none DISPOSITION / PLANS: The patient was placed in a supine position and transferred to the recovery area in a stable condition for observation. There was no evidence of lower extremity motor or sensory deficit after the procedure. Patient was discharged from the recovery room after meeting discharge criteria. Home discharge instructions were given to the patient by the staff. The patient was reexamined prior to discharge.
--- NOTE | 2023-06-15 09:58 | FL ---
EXAMINATION TYPE: FL guided pain mgmt statistic DATE OF EXAM: 06/15/2023 HISTORY: Fluoroscopy time Total dose area product (DAP) in uGy*m?, mGy*cm? (or similar): 0.12026 IMPRESSION: 1. Fluoroscopy time.
[2023-06-15 10:21] VITALS: BP 148/83; PULSE 59; RESP 14
== END 2023-06-15 10:08 | disposition home or self-care (01) ==
LOC: ORPAIN 08:20
PROVIDERS: ATTEND Specialist
DX: M51.16 Intervertebral disc disorders with radiculopathy, lumbar region (principal); Z88.5 Allergy status to narcotic agent
CPT/HCPCS: 64483; Q9966; J1010

== ENCOUNTER → 2023-06-30 | Outpatient (CLI) | payer MEDICARE, OTHER ==
[2023-06-30 10:52] VITALS: BP 144/92; PULSE 73; RESP 15; TEMP 98.6
--- NOTE | 2023-06-30 14:48 | P.PAINPG ---
Objective - Vital Signs Vital signs: Intake & Output 06/29/23 06/30/23 06/30/23 18:59 06:59 18:59 Weight 61.235 kg PQRS Measure Charge Sheet Comment: A 57 yr old female with a history of severe and chronic LBP x 3 mo secondary to L4-L5 Discectomy/ Laminectomy w Revision (2012, 2019) presents today for evaluation s/p BL TFESI L4-L5 #1. Pt states she experienced 50% pain relief x 2 wks s/p procedure. Pain level is provoked at 8 /10 in intensity, constant, pred ominantly axial, localized in the lumbar spine, dull in character w occasional shooting pain down the BL feet. Pain is provoked by over activity. Pain is alleviated with use of the [employer] pool weekly x 3 yrs, heat, ice, medications, THC products, repositioning and rest. Oswestry axial pain score at 35. Interventional pain procedures completed include BL MBB C6-7, C7-T1 x1, BL TFESI L4-L5 x1 Patient is currently on Robaxin, Cannabis Patient denies any side effects of the medication(s), denies excessive drowsiness or sleepiness, denies suicidal ideation and reports that the current pain medication is helping to control the pain and improve activities of daily living. Patient denies any motor or sensory deficits. Patient denies any fever or night sweats, denies any change in the bowel movements or urination. Physical Examination: -Constitutional: Cooperative. Not in acute distress . - Neurologic: Cranial nerve II to XII intact. No focal neurological deficits. - Psychatric: Alert & oriented x 3. Matching mood & appropriate affect. Judgment and insight intact. - Musculoskeletal: Cervical spine: Muscle bulk/ tone/ strength in the bilateral upper extremities normal Vertebral body tenderness to palpation over Spurling test positive Distraction test positive Facet loading test positive TTP Thoracic spine Muscle bulk / tone/ strength in the bilateral paraspinal muscles normal Vertebral body tender to palpation over Facet loading test positive TTP Lumbar spine: Motor bulk/ tone/ strength lower extremities , thigh and legs : 5/5 Deep tendon reflexes : Normal Knee Jerk. Normal Ankle Jerk . Vertebral body tenderness to palpation over L5 Ohara Test positive Lumbar Facet Loading Test positive Straight Leg Raise: positive at 30 degrees right side/ left side Gaenslen's Test positive Sacral spine : Severe tenderness over the Sacroiliac joint: right side / left side Range of motion: Flexion of the lumbar spine <60 degrees Range of motion: Extension of the lumbar spine <20 degrees Gaenslen's Test positive right side / left side Chan test: positive right side / left side Thigh Thrust Test positive right side / left side Sacral Thrust Test positive right side / left side Imaging: MRI non contrast of the lumbar spine from 01/29/23 reviewed Assessment and plan: Chronic LBP secondary to L4-L5 Discectomy/ Laminectomy w Revision, C4-C7 ACDF Recommendation of Caudal JOSH #2. May need a series of injections for optimal pain relief. Risks, benefits of procedure discussed and pt verbalized understanding. Admits to anticoagulant use or medical history of diabetes. Protocol for discontinuation/ continuation of medications mary procedure discussed. All questions answered. I have spent less than 30 minutes on patient care today. Dr Espinoza was available by phone for the evaluation of this patient. The time was used to review the medical records including relevant urine studies and Prescription history (MAPs), review of the available imaging, evaluation and examination of the patient, coordination of care with the medical staff and if applicable referring physicians, as well as creation of the medical record - Pain Location Bilateral Lower Back Non-Pharmacological Interventions: Heat, Inactivity, Position/Reposition Pharmacological Interventions: Epidural, Scheduled Medication PQRS Narrative: Hx Alcohol Use (MH) Yes Home Medications: Ambulatory Orders PARoxetine HCL [Paxil] 40 mg PO QAM 11/28/20 Pregabalin [Lyrica] 100 mg PO QAM 06/14/23 methocarbamoL [Robaxin-750] 750 mg PO Q6HR PRN 06/14/23 diazePAM [Valium] 5 mg PO DAILY PRN 1 Days #2 tab 06/30/23 Controlled Substance Measures - Controlled Substance Measures Is patient prescribed a controlled substance at discharge?: Yes When asked, does pt state using other controlled substances?: No If prescribed controlled substance>3 days was MAPS reviewed?: Prescribed <3 Days
== END | disposition home or self-care (01) ==
LOC: PNWHC3 09:29
PROVIDERS: ATTEND Specialist
DX: M51.26 Other intervertebral disc displacement, lumbar region (principal); Z88.5 Allergy status to narcotic agent
CPT/HCPCS: 99211

== ENCOUNTER 2023-07-13 07:59 | Day surgery (SDC) | payer MEDICARE, OTHER ==
[2023-07-13 08:47] VITALS: RESP 16; TEMP 97
[2023-07-13] MEDS ORDERED: IOPAMIDOL M200 10 ML VIAL ONE (08:48)
[2023-07-13] MEDS ORDERED: ROPIVACAINE 5MG/ML 20ML VIAL ONE (08:48)
[2023-07-13] MEDS ORDERED: TRIAMCINOLONE ACETONIDE 40 MG/ML 1 ML VIAL ONE (08:48)
--- NOTE | 2023-07-13 08:59 | P.PCN ---
Date of Procedure: 07/13/23 Surgeon: Manny Henley Pathology: none sent Condition: stable Disposition: PACU Description of Procedure: PREOPERATIVE DIAGNOSIS: Lumbar post laminectomy syndrome. POSTOPERATIVE DIAGNOSIS: Lumbar post laminectomy syndrome. PROCEDURE: 1. Caudal epidural steroid injection under fluoroscopic guidance. 2. Caudal epidurogram. ANESTHESIA: Local with 1% lidocaine; EBL: Negligible PROCEDURE INDICATION: The patient with neuropathic pain radiating distally returns for caudal epidural steroid injection. PROCEDURE DESCRIPTION: The patient was seen and identified in the preoperative area. Risks, benefits, complications, and alternatives were discussed with the patient. The patient agreed to proceed with the procedure and signed the consent. IV was started, and vital signs were stable. Patient was taken to the OR and time out was completed. The patient was placed in the prone position on procedure table and a pillow was placed under the abdomen to reduce lumbar lordosis. The lumbosacral area was prepped and draped in the usual sterile fashion. Critical pause was taken. Vital signs were closely monitored during the procedure. Using lateral fluoroscopy the anterior-posterior plates of the sacrum were identified and the skin and deeper tissues corresponding into sacrococcygeal ligament were anesthetized using approximately 3 mL of 1% lidocaine. Then under fluoroscopy, a 3-1/2-inch 20-gauge Tuohy epidural needle/22-guage 3-1/2 -inch spinal needle was guided through the sacrococcygeal ligament, and into the epidural space. After negative aspiration, a 1 mL of omnipaque-300 contrast dye was injected with excellent epidurogram. Again after negative aspiration for CSF, blood, and with no paresthesias, Kenalog 40mg,2ml of 0.5% preservative free Ropivacaine with 7ml of preservative free normal saline(total of 10ml)solution was injected with washout of epidurogram. Needle was withdrawn intact. Skin was cleansed, and bandage was applied. COMPLICATIONS: None. DISPOSITION / PLANS: The patient was placed in a supine position and transferred to the recovery area in a stable condition for observation and was discharged from the recovery room after meeting discharge criteria. Home discharge instructions given to the patient by the staff. The patient was reexamined prior to discharge. The patient will schedule a follow up in the clinic in 2-4 weeks.
--- NOTE | 2023-07-13 09:15 | FL ---
EXAMINATION TYPE: FL guided pain mgmt statistic DATE OF EXAM: 07/13/2023 HISTORY: Fluoroscopy time Total dose area product (DAP) in uGy*m?, mGy*cm? (or similar): 0.08252 IMPRESSION: 1. Fluoroscopy time.
[2023-07-13 09:47] VITALS: BP 147/82; PULSE 57
== END 2023-07-13 09:36 ==
LOC: ORPAIN 07:59
PROVIDERS: ATTEND Anesthesiology
DX: M96.1 Postlaminectomy syndrome, not elsewhere classified (principal); Z88.5 Allergy status to narcotic agent
CPT/HCPCS: 62323; J3301; Q9966; J2795